=== PATIENT | male | born 1970 | race Caucasian/White ===

== ENCOUNTER 2017-10-23 02:54 | Emergency (ER) | payer BC ==
[~2017-10-23] VITALS: Ht 180.3 cm; Wt 136.1 kg
[~2017-10-23 02:54] MED LIST: ASPI-264 OR; MAGN400T28 PO; METOPROLOL SUCC ER 25 MG TAB PO; Multivitamin; fish oil
[2017-10-23 07:15] LABS: Basophils # (auto) 0 uL; Basophils % (auto) 0.6 % (0.0-2.0); Eosinophils # (auto) 0.1 uL; Eosinophils % (auto) 1.1 % (0.0-7.0); Hematocrit 43.2 % (41.0-53.0); Hemoglobin 14.9 g/dL (13.5-17.5); Lymphocytes # (auto) 1.5 uL; Lymphocytes % (auto) 19.6 % (10.0-50.0); Mean Corpuscular Hgb Conc. 34.5 g/dL (32.0-36.0); Mean Corpuscular Volume 86.9 fL (80.0-100.0); Monocytes # (auto) 0.6 uL; Monocytes % (auto) 7.1 % (0.0-12.0); Neutrophils # (auto) 5.6 uL; Neutrophils % (auto) 71.6 % (37.0-80.0); Nucleated Red Blood Cells % 0.1 %; Platelet Count (auto) 249 10^3/uL (140-450); Red Blood Cells 4.97 10^6/uL (4.5-5.90); Red Cell Distribution Width 13.7 % (11.8-14.3); White Blood Cell 7.8 10^3/uL (4.4-10.8)
[2017-10-23 07:28] LABS: Alanine Aminotransferase 31 U/L (16-61); Albumin 3.6 g/dL (3.4-5.0); Anion Gap 6 (5-15); Aspartate Aminotransferase 18 U/L (15-37); BUN/Creatinine Ratio 16.5; Blood Urea Nitrogen 13 mg/dL (7-18); Carbon Dioxide 25 mmol/L (21-32); Chloride 106 mmol/L (98-107); GFR African American 136 mL/min; GFR Non-African American 112 mL/min; Glucose 229 mg/dL (74-106); Potassium 4.3 mmol/L (3.5-5.1); Sodium 137 mmol/L (136-145)
[2017-10-23 07:32] LABS: Alkaline Phosphatase 99 U/L (45-117); Bilirubin, Total 0.5 mg/dL (0.2-1.0); Total Protein 7.5 g/dL (6.4-8.2)
[2017-10-23 08:59] VITALS: BP 133/77
[2017-10-23 09:27] LABS: Alcohol, Urine < 3.0 mg/dL (0-5); Amphetamine Screen, Urine NEGATIVE (NEGATIVE); Barbiturate Scree,Urine NEGATIVE (NEGATIVE); Benzodiazephine Screen, Urine NEGATIVE (NEGATIVE); Cannabinoid Screen, Urine NEGATIVE (NEGATIVE); Cocaine Screen, Urine NEGATIVE (NEGATIVE); Opiate Scree,Urine NEGATIVE (NEGATIVE); Phencyclidine Screen, Urine NEGATIVE (NEGATIVE)
== END 2017-10-23 11:20 | disposition home or self-care (01) ==
LOC: ER 02:55
DX: R07.89 Other chest pain (principal); E11.9 Type 2 diabetes mellitus without complications; I10 Essential (primary) hypertension; J45.909 Unspecified asthma, uncomplicated; Z79.82 Long term (current) use of aspirin; Z79.899 Other long term (current) drug therapy
CPT/HCPCS: 36415; 71045; 80053; 80307; 83880; 84484; 85025; 93005

== ENCOUNTER 2024-03-29 02:52 | Emergency (ER) | payer BC, OTHER ==
[~2024-03-29] VITALS: Ht 180.3 cm; Wt 145.6 kg
[~2024-03-29 02:52] MED LIST changes: -ASPI-264 OR; +ASPI1TAB38 OR
[2024-03-29 03:17] LABS: Basophils # (auto) 0.1 10 ^3/uL (0-0.2); Basophils % (auto) 0.7 % (0.0-2.0); Eosinophils # (auto) 0.1 10 ^3/uL (0-0.8); Eosinophils % (auto) 0.6 % (0.0-7.0); Hematocrit 46.6 % (41.0-53.0); Hemoglobin 16.5 g/dL (13.5-17.5); Lymphocytes # (auto) 2.3 10 ^3/uL (0.4-5.4); Lymphocytes % (auto) 22.4 % (10.0-50.0); Mean Corpuscular Hgb Conc. 35.4 g/dL (32.0-36.0); Mean Corpuscular Volume 87.6 fL (80.0-100.0); Monocytes # (auto) 0.7 10 ^3/uL (0-1.3); Monocytes % (auto) 7.4 % (0.0-12.0); Neutrophils # (auto) 6.9 10 ^3/uL (1.6-8.6); Neutrophils % (auto) 68.9 % (37.0-80.0); Nucleated Red Blood Cells % 0.1 %; Platelet Count (auto) 266 10^3/uL (140-450); Red Blood Cells 5.32 10^6/uL (4.5-5.90); Red Cell Distribution Width 13.6 % (11.8-14.3); White Blood Cell 10.1 10^3/uL (4.4-10.8)
[2024-03-29 03:18] LABS: Urine Bacteria None Seen /hpf (None Seen)
[2024-03-29 03:26] LABS: Urine Blood Negative /uL (Negative); Urine Clarity Clear (Clear); Urine Color Yellow (Yellow); Urine Mucus FEW (None Seen); Urine Protein, UAD Negative (Negative); Urine Specific Gravity 1.041 (1.001-1.035); Urine Urobilinogen Normal (Negative); Urine WBC <1 /hpf (0 - 3)
[2024-03-29 03:32] LABS: Chloride 103 mmol/L (98-107); Sodium 134 mmol/L (136-145)
[2024-03-29 03:33] LABS: Anion Gap 7 (5-15); Calcium 9.3 mg/dL (8.7-10.4); Carbon Dioxide 24 mmol/L (20-30)
[2024-03-29 03:38] LABS: BUN/Creatinine Ratio 8.8 (10.0-20.0); Blood Urea Nitrogen 8 mg/dL (9-23); Glucose 360 mg/dL (74-106)
[2024-03-29] MEDS: NITROGLYCERIN 0.4 MG SL TAB SL ONE (04:30)
[2024-03-29] MEDS: ASPirin 325 MG TAB PO ONE (05:27)
[2024-03-29] MEDS: InsuLIN REG 1unit/0.01ml Soln (100units/ml) IV ONE (05:28)
[2024-03-29 10:15] VITALS: BP 130/75; PULSE 97; RESP 14; TEMP 98.4; O2SAT 97
== END 2024-03-29 10:29 | disposition short-term general hospital (02) ==
LOC: ER 02:52
DX: R07.89 Other chest pain (principal); R00.2 Palpitations; E11.9 Type 2 diabetes mellitus without complications; Z79.82 Long term (current) use of aspirin; Z79.899 Other long term (current) drug therapy
CPT/HCPCS: 36415; 71045; 80048; 81001; 82962; 84484; 85025; 85379; 93005; 96374; 99285; J1815

== ENCOUNTER 2024-08-09 14:28 | Emergency (ER) | payer OTHER ==
[~2024-08-09] VITALS: Ht 180.3 cm; Wt 130.5 kg
--- NOTE | 2024-08-09 15:09 | ED.PDOC ---
GI ASSESSMENT HPI Comments 53 y.o male presents to the ED for a chief complaint of abdominal pain and chills that started 3 days ago. Patient reports recently recovering from flu like symptoms that included body aches and congestion but states abdominal pain has been consistent, located to the periumbilical region and now radiates to the RLQ. Patient was seen at [facility] today, had ultrasound done which showed gallstones alongside an elevated WBC and was sent to the ED. Patient denies any dysuria, hematuria, fever, nausea, vomiting, diarrhea. Chief Complaint: Abdominal Pain Time Seen by MD: 15:03 Primary Care Provider: AILEEN Reviewed Notes: Nurses Notes, Medications, Allergies Allergies: Coded Allergies: NO KNOWN ALLERGIES (Unverified , 10/23/17) Home Meds Reported Medications Magnesium Oxide (MAGOX 400) 400 Mg Tab, 400 MG PO DAILY 12/09/12 [Metoprolol Succ Er 25 Mg Tab] No Conflict Check, 25 MG PO BID 10/30/12 [fish oil] No Conflict Check 12/11/11 [Multivitamin] No Conflict Check 12/11/11 Aspirin (Aspirin) 325 Mg Tab, 81 MG OR DAILY 12/11/11 Information Source: Patient Mode of Arrival: Ambulatory Timing: Hours Duration: Since onset Quality: Sharp Vomitus: None Stool: Normal Severity: Moderate Recent: None Recent Hx of: None Pain Location: Periumbilical Modifying Factors: Nothing Associated sign and symptoms: Nausea, Abdominal Pain Past Medical History PAST MEDICAL HISTORY: DM, Gallstones, HTN Surgical History: Denies all surgeries Family History Family History: No family hx of DM, No family hx of Heart maximo, No family hx of HTN Social History Smoker: Non-Smoker Alcohol: Occasionally Drugs: Denies Drug Use Lives In: Home Constitutional: reports: chills; denies: diaphoresis, fatigue, fever, malaise, sweats, weakness, others EENTM: denies: blurred vision, double vision, ear bleeding, ear discharge, ear drainage, ear pain, ear ringing, eye pain, eye redness, hearing loss, mouth pain, mouth swelling, nasal discharge, nose bleeding, nose congestion, nose pain, photophobia, tearing, throat pain, throat swelling, voice changes, others Respiratory: denies: cough, hemoptysis, orthopnea, SOB at rest, shortness of breath, SOB with excertion, stridor, wheezing, others Cardiovascular: denies: chest pain, dizzy spells, diaphoresis, Dyspnea on exertion, edema, irregular heart beat, left arm pain, lightheadedness, palpitations, PND, syncope, others Gastrointestinal: reports: abdominal pain; denies: abdomen distended, blood streaked bowels, constipated, diarrhea, dysphagia, difficulty swallowing, hematemesis, melena, nausea, poor appetite, poor fluid intake, rectal bleeding, rectal pain, vomiting, others Genitourinary: denies: burning, dysuria, flank pain, frequency, hematuria, incontinence, penile discharge, penile sore, pain, testicle pain, testicle swelling, urgency, others Neurological: denies: dizziness, fainting, headache, left sided numbness, left sided weakness, numbness, paresthesia, pre-existing deficit, right sided numbness, right sided weakness, seizure, speech problems, tingling, tremors, weakness, others Musculoskeletal: denies: back pain, gout, joint pain, joint swelling, muscle pain, muscle stiffness, neck pain, others Integumetry: denies: bruises, change in color, change in hair/nails, dryness, laceration, lesions, lumps, rash, wounds, others Allergic/Immunocompromised: denies: Difficulty Healing, Frequent Infections, Hives, Itching, others Hematologic/Lymphatic: denies: anemia, blood clots, easy bleeding, easy bruising, swollen glands, others Endocrine: denies: excessive hunger, excessive sweating, excessive thirst, excessive urination, flushing, intolerance to cold, intolerance to heat, unexplained weight gain, unexplained weight loss, others Psychiatric: denies: anxiety, bipolar disorder, depression, hopeless, panic disorder, schizophrenia, sleepless, suicidal, others All Other Systems: Reviewed and Negative Physical Exam General Appearance: No Apparent Distress, Normal HEENT: Normal ENT Inspection, Pharynx Normal, TMs Normal Neck: Full Range of Motion, Non-Tender, Normal, Normal Inspection Respiratory: Chest Non-Tender, Lungs Clear, No Accessory Muscle Use, No Respiratory Distress, Normal Breath Sounds Cardiovascular: No Edema, No JVD, No Murmur, No Gallop, Normal Peripheral Pulses, Regular Rate/Rhythm Breast Exam: Deferred Gastrointestinal: Diffuse, Tenderness Genitalia: Deferred Pelvic: Deferred Rectal: Deferred Extremities: No calf tenderness, Normal capillary refill, Normal inspection, Normal range of motion, Non-tender, No pedal edema Musculoskeletal : Apperance: Normal Neurologic: Alert, pharmacy informatics specialist II-XII nml as Tested, No Motor Deficits, Normal Affect, Normal Mood, No Sensory Deficits Cerebellar Function: Normal Reflexes: Normal Skin: Dry, Normal Color, Warm Lymphatic: No Adenopathy Was a procedure done? Was a procedure done?: No GI differential Dx Differential Diagnosis: Cholangitis, Cholecystitis, Gastroenteritis X-Ray, Labs, Meds, VS Vital Signs Date Time Temp Pulse Resp B/P (MAP) Pulse Ox O2 Delivery O2 Flow Rate FiO2 08/09/24 14:43 98.6 114 20 113/71 (85) 98 Lab Test 08/09/24 17:49 08/09/24 15:59 08/09/24 14:41 Range/Units Troponin I High Sensitivity < 3 L < 3 L </=54 ng/L White Blood Count 13.1 H 4.4-10.8 10^3/uL Red Blood Count 5.48 4.5-5.90 10^6/uL Hemoglobin 16.3 13.5-17.5 g/dL Hematocrit 48.2 41.0-53.0 % Mean Corpuscular Volume 88.0 80.0-100.0 fL Mean Corpuscular Hemoglobin 29.8 28.0-32.0 pg Mean Corpuscular Hemoglobin Concent 33.9 32.0-36.0 g/dL Red Cell Distribution Width 13.9 11.8-14.3 % Platelet Count 355 140-450 10^3/uL Mean Platelet Volume 7.5 6.9-10.8 fL Neutrophils (%) (Auto) 80.2 H 37.0-80.0 % Lymphocytes (%) (Auto) 14.3 10.0-50.0 % Monocytes (%) (Auto) 4.5 0.0-12.0 % Eosinophils (%) (Auto) 0.5 0.0-7.0 % Basophils (%) (Auto) 0.5 0.0-2.0 % Neutrophils # (Auto) 10.5 H 1.6-8.6 10 ^3/uL Lymphocytes # (Auto) 1.9 0.4-5.4 10 ^3/uL Monocytes # (Auto) 0.6 0-1.3 10 ^3/uL Eosinophils # (Auto) 0.1 0-0.8 10 ^3/uL Basophils # (Auto) 0.1 0-0.2 10 ^3/uL Nucleated Red Blood Cells 0.1 % Prothrombin Time 10.9 9.3-11.8 sec Prothrombin Time INR 1.03 0.9-1.15 Activated Partial Thromboplast Time 31.6 24.5-34.5 SEC Sodium Level 139 136-145 mmol/L Potassium Level 4.3 3.5-5.1 mmol/L Chloride Level 103 98-107 mmol/L Carbon Dioxide Level 25 20-31 mmol/L Anion Gap 11 5-15 Blood Urea Nitrogen 18 9-23 mg/dL Creatinine 0.80 0.700-1.30 mg/dL Glomerular Filtration Rate Calc 106 >90 mL/min BUN/Creatinine Ratio 22.5 H 10.0-20.0 Serum Glucose 111 H 74-106 mg/dL Lactic Acid Level 1.2 0.4-2.0 mmol/L Calcium Level 11.0 H 8.7-10.4 mg/dL Total Bilirubin 0.5 0.2-1.0 mg/dL Aspartate Amino Transferase (AST) 19 13-40 U/L Alanine Aminotransferase (ALT) 17 7-40 U/L Alkaline Phosphatase 85 46-116 U/L Total Protein 7.9 5.7-8.2 g/dL Albumin 5.0 H 3.2-4.8 g/dL Lipase 56 H 12-53 U/L Urine Color Yellow Yellow Urine Clarity Clear Clear Urine pH 5.5 5.0-9.0 Urine Specific [place] 1.031 1.001-1.035 Urine Protein Trace H Negative Urine Ketones 2+ H Negative Urine Blood 3+ H Negative /uL Urine Nitrite Negative Negative Urine Bilirubin Negative Negative Urine Urobilinogen Normal Negative mg/dL Urine Leukocyte Esterase Negative Negative /uL Urine RBC 122 0 - 3 /hpf Urine WBC 3 0 - 3 /hpf Urine Squamous Epithelial Cells Few <5 /hpf Urine Bacteria None seen None Seen /hpf Urine Hyaline Casts Few 0 - 2 /lpf Urine Mucus Few None Seen Urine Glucose Normal Normal mg/dL Exam: CT CT AB PEL WO CON-NO ORAL OR IV History: cough Comparison Study: None available at time of dictation. TECHNIQUE: Multidetector CT of the abdomen was performed from lung bases to pubic symphysis. Imaging was performed without IV contrast. Axial, coronal and sagittal multiplanar reformats were obtained from the axial data set by the technologist. Radiation Dose Information: CT Dose: CTDI volume is 26.16 mGy. Dose-length product is 1308.28 mGy*cm FINDINGS: Evaluation of solid organs is limited due to lack of intravenous contrast use. Findings: Lung Bases: No acute or significant lung base finding. Normal heart size. No pleural or pericardial effusion. Liver: The liver is normal in size. No focal lesions. Gallbladder and Biliary Tree: Calcified gallstone Spleen: Unremarkable Pancreas: The pancreas is grossly normal in appearance. Adrenal Glands: Unremarkable Kidneys: Multiple right renal calculi without hydronephrosis Bladder: Grossly unremarkable for degree of distention. Bowel: The stomach is grossly normal in appearance. Small bowel and colon are no rmal in caliber and distribution. The appendix is not visualized; however, no secondary findings of acute appendicitis identified. Ascites: Absent Lymphadenopathy: No mesenteric, retroperitoneal or periportal lymphadenopathy. Abdominal Wall and Mesentery: Unremarkable. Vasculature: The visualized abdominal aorta is normal in size and caliber. Evaluation of abdominal and pelvic vessels is limited due to lack of intravenous contrast. Pelvic Organs: Unremarkable Musculoskeletal: No aggressive focal bony lesions, acute fractures or dislocation. Soft tissues: Unremarkable IMPRESSION: 1. Lung bases are clear 2. Calcified gallstones 3. 2 nonobstructing right renal calculi 4. No findings of bowel obstruction X-Ray, Labs, Meds, VS Comment This 53-year-old male presents to emergency room secondary to right-sided abdominal pain. He was seen at [facility] and told he has gallstones elevated white count. As such, she was sent here. Here, the patient has a minimal elevated again at 13.1. Otherwise, his labs were benign. His CT showed 2 nonobstructing kidney stones. Considering the patient was recently getting over an illness, I believe the white count is legs secondary to that versus any intra-abdominal or nephric pathology. The patient will be discharged home with Flomax. The patient is asked to follow up with his PCP in the morning. Time of 1ST Reevaluation: 15:06 Reevaluation 1ST: Unchanged Patient Education/Counseling: Diagnosis, Treatment, Prognosis Family Education/Counseling: Diagnosis, Treatment, Prognosis Departure 1 Departure Time of Disposition: 18:56 Impression: Primary Impression: Nephrolithiasis Additional Impressions: Leukocytosis Abdominal pain Disposition: HOME / SELF CARE / HOMELESS Condition: Good Discharged With: Self Critical Care Note Critical Care Time?: No Stability Stability form required: No I personally scribed for LIZBETH MCKEON MD ([facility]) on 08/09/24 at 15:09. Electronically submitted by Leslee Walton ([facility]). I personally scribed for LIZBETH MCKEON MD ([facility]) on 08/09/24 at 15:13. Electronically submitted by Leslee Walton ([facility]). I personally scribed for LIZBETH MCKEON MD ([facility]) on 08/09/24 at 16:35. E lectronically submitted by Leslee Walton ([facility]). LIZBETH MCKEON MD Aug 09, 2024 15:09
--- NOTE | 2024-08-09 15:45 | DVH ---
Exam: CT CT AB PEL WO CON-NO ORAL OR IV History: cough Comparison Study: None available at time of dictation. TECHNIQUE: Multidetector CT of the abdomen was performed from lung bases to pubic symphysis. Imaging was performed without IV contrast. Axial, coronal and sagittal multiplanar reformats were obtained fr om the axial data set by the technologist. Radiation Dose Information: CT Dose: CTDI volume is 26.16 mGy. Dose-length product is 1308.28 mGy*cm FINDINGS: Evaluation of solid organs is limited due to lack of intravenous contrast use. Findings: Lung Bases: No acute or significant lung base finding. Normal heart size. No pleural or pericardial effusion. Liver: The liver is normal in size. No focal lesions. Gallbladder and Biliary Tree: Calcified gallstone Spleen: Unremarkable Pancreas: The pancreas is grossly normal in appearance. Adrenal Glands: Unremarkable Kidneys: Multiple right renal calculi without hydronephrosis Bladder: Grossly unremarkable for degree of distention. Bowel: The stomach is grossly normal in appearance. Small bowel and colon are normal in caliber and d istribution. The appendix is not visualized; however, no secondary findings of acute appendicitis id entified. Ascites: Absent Lymphadenopathy: No mesenteric, retroperitoneal or periportal lymphadenopathy. Abdominal Wall and Mesentery: Unremarkable. Vasculature: The visualized abdominal aorta is normal in size and caliber. Evaluation of abdominal a nd pelvic vessels is limited due to lack of intravenous contrast. Pelvic Organs: Unremarkable Musculoskeletal: No aggressive focal bony lesions, acute fractures or dislocation. Soft tissues: Unremarkable IMPRESSION: 1. Lung bases are clear 2. Calcified gallstones 3. 2 nonobstructing right renal calculi 4. No findings of bowel obstruction Radiation optimization: All CT scans at this facility use at least one of these dose optimization te chniques: automated exposure control mA and/or kV adjustment per patient size (includes targeted exa ms where dose is matched to clinical indication) or iterative reconstruction. HS:Y
[2024-08-09 16:16] LABS: Basophils # (auto) 0.1 10 ^3/uL (0-0.2); Basophils % (auto) 0.5 % (0.0-2.0); Eosinophils # (auto) 0.1 10 ^3/uL (0-0.8); Eosinophils % (auto) 0.5 % (0.0-7.0); Hematocrit 48.2 % (41.0-53.0); Hemoglobin 16.3 g/dL (13.5-17.5); Lymphocytes # (auto) 1.9 10 ^3/uL (0.4-5.4); Lymphocytes % (auto) 14.3 % (10.0-50.0); Mean Corpuscular Hemoglobin 29.8 pg (28.0-32.0); Mean Corpuscular Hgb Conc. 33.9 g/dL (32.0-36.0); Monocytes # (auto) 0.6 10 ^3/uL (0-1.3); Monocytes % (auto) 4.5 % (0.0-12.0); Neutrophils # (auto) 10.5 10 ^3/uL (1.6-8.6); Neutrophils % (auto) 80.2 % (37.0-80.0); Nucleated Red Blood Cells % 0.1 %; Platelet Count (auto) 355 10^3/uL (140-450); Red Blood Cells 5.48 10^6/uL (4.5-5.90); Red Cell Distribution Width 13.9 % (11.8-14.3); White Blood Cell 13.1 10^3/uL (4.4-10.8)
[2024-08-09 16:30] LABS: INR 1.03 (0.9-1.15); Partial Thromboplastin Time 31.6 SEC (24.5-34.5); Prothrombin Time 10.9 sec (9.3-11.8)
[2024-08-09 16:35] LABS: Alanine Aminotransferase 17 U/L (7-40); Alkaline Phosphatase 85 U/L (46-116); Anion Gap 11 (5-15); Aspartate Aminotransferase 19 U/L (13-40); BUN/Creatinine Ratio 22.5 (10.0-20.0); Bilirubin, Total 0.5 mg/dL (0.2-1.0); Blood Urea Nitrogen 18 mg/dL (9-23); Carbon Dioxide 25 mmol/L (20-31); Chloride 103 mmol/L (98-107); Potassium 4.3 mmol/L (3.5-5.1); Sodium 139 mmol/L (136-145); Total Protein 7.9 g/dL (5.7-8.2)
[2024-08-09 16:38] LABS: Glucose 111 mg/dL (74-106); Lipase 56 U/L (12-53)
[2024-08-09 17:54] LABS: Urine Bacteria None Seen /hpf (None Seen)
[2024-08-09 18:21] LABS: Urine Blood 3+ /uL (Negative); Urine Clarity Clear (Clear); Urine Color Yellow (Yellow); Urine Hyaline Cast FEW /lpf (0 - 2); Urine Mucus FEW (None Seen); Urine Protein, UAD TRACE (Negative); Urine Specific Gravity 1.031 (1.001-1.035); Urine Squamous Epithelial Cell FEW /hpf (<5); Urine Urobilinogen Normal (Negative); Urine WBC 3 /hpf (0 - 3); Urine pH 5.5 (5.0-9.0)
[2024-08-09] MEDS ORDERED: TAMS-35 PO (18:58)
[2024-08-09 19:35] VITALS: BP 118/64; PULSE 97; RESP 16; TEMP 98.7; O2SAT 98
== END 2024-08-09 19:35 | disposition home or self-care (01) ==
LOC: ER 14:28
DX: N20.0 Calculus of kidney (principal); D72.829 Elevated white blood cell count, unspecified; R10.33 Periumbilical pain; E11.9 Type 2 diabetes mellitus without complications; I10 Essential (primary) hypertension; Z79.899 Other long term (current) drug therapy
CPT/HCPCS: 36415; 74176; 80053; 81001; 83605; 83690; 84484; 85025; 85610; 85730; 87040